=== PATIENT | male | born 1995 | race Caucasian/White ===

== ENCOUNTER → 2022-01-01 | Emergency (ER) | payer BC ==
[~2022-01-01] VITALS: Ht 180.3 cm; Wt 75.7 kg
--- NOTE | 2022-01-01 16:00 | NUR ---
Pt brought by mother, A&Ox4, pt presents to ER with N/V/D and bodyaches for 11 days, pt VSS, skin pink and warm, cap refill <3, respirations even and unlabored, will cont to monitor.
[2022-01-01 16:12] VITALS: BP_SYST 137
--- NOTE | 2022-01-01 16:32 | NUR ---
Dr Wynn evaluating patient at bedside
[2022-01-01 17:35] LABS: BILIRUBIN,URINE NEGATIVE (NEGATIVE); BLOOD, URINE NEGATIVE (NEGATIVE); CLARITY/URINE CLEAR (CLEAR); COLOR,URINE YELLOW (YELLOW); GLUCOSE,URINE NEGATIVE (NEGATIVE); KETONES,URINE NEGATIVE (NEGATIVE); LEUKOCYTE ESTERASE ,URINE NEGATIVE (NEGATIVE); NITRITE, URINE NEGATIVE (NEGATIVE); PROTEIN URINE NEGATIVE (NEGATIVE); UROBILINOGEN,URINE 0.2 (0.2-1.0)
[2022-01-01 17:51] LABS: BARBITURATE, URINE NEGATIVE (NEG <=200); URINE AMPHETAMINE NEGATIVE (NEG <=500)
[2022-01-01 17:52] LABS: BENZODIAZEPINE, URINE NEGATIVE (NEG <=150); CANNABINOID, URINE NEGATIVE (NEG <=50); COCAINE, URINE NEGATIVE (NEG <=150); METHAMPHETAMINES SCREEN,URINE NEGATIVE (NEG <=500); OPIATE, URINE NEGATIVE (NEG <=100); PHENCYCLIDINE SCREEN,URINE NEGATIVE (NEG <=25); UR TRICYCLIC ANTIDEPRESSANTS NEGATIVE (NEG <=300); URINE METHADONE NEGATIVE (NEG <=200); URINE OXYCODONE SCREEN NEGATIVE (NEG <=100); URINE PROPOXYPHENE SCREEN NEGATIVE (NEG <=300)
[2022-01-01 17:52] LABS: BASOPHILS % (AUTO) 0.6 % (0.0-2.0); EOSINOPHILS % (AUTO) 0.1 % (0.0-4.0); HEMATOCRIT 42.9 % (36-54); HEMOGLOBIN 14.9 g/dL (14.0-18.0); LYMPHOCYTES # (AUTO) 0.9 K/uL (1.0-5.5); LYMPHOCYTES % (AUTO) 15.2 % (20.5-51.5); MEAN CORPUSCULAR HEMOGLOBIN 31 pg (27-31); MEAN CORPUSCULAR HGB CONC 35 % (32-36); MEAN CORPUSCULAR VOLUME 89 fL (79.0-98.0); MONOCYTES # (AUTO) 0.5 K/uL (0.0-1.0); MONOCYTES % (AUTO) 8.5 % (1.7-9.3); NEUTROPHILS # (AUTO) 4.4 K/uL (1.8-7.7); NEUTROPHILS % (AUTO) 75.6 % (40.0-70.0); PLATELET COUNT (AUTO) 212 K/uL (130-430); RED BLOOD CELL COUNT(AUTO) 4.82 MIL/uL (4.2-6.2); RED CELL DISTRIBUTION WIDTH 13.4 % (9.0-15.0); WHITE BLOOD COUNT (AUTO) 5.8 K/uL (4.8-10.8)
[2022-01-01 17:56] LABS: ANION GAP 10 (5-15); CALCIUM 9.2 mg/dL (8.4-11.0); CHLORIDE 97 mmol/L (98-107); CREATININE 1.03 mg/dL (0.55-1.30); GLUCOSE 124 mg/dL (70-99); POTASSIUM 3.7 mmol/L (3.5-5.1); SODIUM SERUM 137 mmol/L (136-145); UREA NITROGEN, BLOOD 6 mg/dL (8-21)
[2022-01-01 18:01] LABS: ALANINE AMINOTRANSFERASE 74 U/L (12-78); ALBUMIN 4.3 g/dL (3.4-4.8); AMYLASE 59 U/L (0-100); ASPARTATE AMINOTRANSFERASE 98 U/L (10-37); LACTATE DEHYDROGENASE 246 U/L (85-227); LIPASE 90 U/L (73-393); TOTAL BILIRUBIN 0.7 mg/dL (0.0-1.0)
[2022-01-01 18:15] LABS: C-REACTIVE PROTEIN QUANT < 0.2 mg/dL (0-0.5); GFR AFRICAN AMERICAN 114 mL/min (>90)
[2022-01-01 18:58] VITALS: BP_SYST 115
--- NOTE | 2022-01-01 18:59 | NUR ---
Patient given written and verbal discharge instructions and verbalizes understanding. ER MD discussed with patient the results and treatment provided. Patient in stable condition. ID arm band removed. Patient educated on pain management and to follow up with PMD. Pain Scale 0/10. Opportunity for questions provided and answered. Medication side effect fact sheet provided.
== END | disposition home or self-care (01) ==
LOC: SED 15:46
DX: R11.2 Nausea with vomiting, unspecified (principal); R19.7 Diarrhea, unspecified; Z20.822 Contact with and (suspected) exposure to COVID-19; Z79.899 Other long term (current) drug therapy
CPT/HCPCS: 36415; 76376; 80053; 80307; 81003; 82150; 83605; 83615; 83690; 85025; 86140; 99284